=== PATIENT | female | born 1940 | race Caucasian/White ===

== ENCOUNTER 2018-08-21 09:04 | Emergency (ER) | payer MEDICARE | END 2018-08-21 11:04 | disposition home or self-care (01) | LOC: EDH 09:04 | DX: S52.501A Unspecified fracture of the lower end of right radius, initial encounter for closed fracture (principal); S79.911A Unspecified injury of right hip, initial encounter; Z88.2 Allergy status to sulfonamides; Z88.6 Allergy status to analgesic agent; Z98.890 Other specified postprocedural states; W18.39XA Other fall on same level, initial encounter; Y93.01 Activity, walking, marching and hiking; Y92.89 Other specified places as the place of occurrence of the external cause; Y99.8 Other external cause status | CPT/HCPCS: 29125; 73110; 73521 ==

== ENCOUNTER 2018-08-22 09:20 | Emergency (ER) | payer MEDICARE | END 2018-08-22 09:52 | disposition home or self-care (01) | LOC: EDH 09:20 | DX: S52.91XA Unspecified fracture of right forearm, initial encounter for closed fracture (principal); Z88.2 Allergy status to sulfonamides; Z88.6 Allergy status to analgesic agent; Z88.1 Allergy status to other antibiotic agents; Z98.890 Other specified postprocedural states; W18.39XA Other fall on same level, initial encounter; Y93.01 Activity, walking, marching and hiking; Y92.098 Other place in other non-institutional residence as the place of occurrence of the external cause; Y99.8 Other external cause status | CPT/HCPCS: 99281 ==

== ENCOUNTER 2018-08-24 20:46 | Emergency (ER) | payer MEDICARE | END 2018-08-24 22:10 | disposition home or self-care (01) | LOC: EDH 20:46 | DX: S52.501A Unspecified fracture of the lower end of right radius, initial encounter for closed fracture (principal); M79.89 Other specified soft tissue disorders; Z88.2 Allergy status to sulfonamides; Z88.5 Allergy status to narcotic agent; Z88.1 Allergy status to other antibiotic agents; Z88.6 Allergy status to analgesic agent; X58.XXXA Exposure to other specified factors, initial encounter; Y93.89 Activity, other specified; Y92.89 Other specified places as the place of occurrence of the external cause; Y99.8 Other external cause status | CPT/HCPCS: 99281 ==

== ENCOUNTER 2022-02-19 10:34 | Observation (INO) | payer MEDICARE ==
[~2022-02-19] VITALS: Ht 162.6 cm; Wt 59.5 kg
[2022-02-19] MEDS ORDERED: TEMAZEPAM 15 MG CAPSULE PO PRN (11:30)
[2022-02-19] MEDS ORDERED: LACTULOSE 20 GM/30 ML UDCUP PO PRN (11:30)
[2022-02-19] MEDS ORDERED: ONDANSETRON 4MG INJ IVP PRN (11:30)
[2022-02-19] MEDS ORDERED: ACETAMINOPHEN 325 MG TAB PO PRN (11:30)
[2022-02-19] MEDS ORDERED: ACETAMINOPHEN 650 MG SUPPOSITORY RC PRN (11:30)
[2022-02-19] MEDS ORDERED: CLONIDINE HCL 0.1 MG TABLET PO PRN (11:30)
[2022-02-19 12:10] LABS: ABG BASE EXCESS 0.5 mmol/L (-2.0-3.0); ABG HCO3 24.1 mmol/L (21.0-28.0); ABG OXYGEN SATURATION 96.3 % (95.0-99.0); ABG PCO2 36 mmHg (32-45)
[2022-02-19 14:55] VITALS: BP 135/59
[2022-02-19] MEDS ORDERED: LUBI8CAP PO (16:58)
[2022-02-19] MEDS ORDERED: SERT-438 PO (16:58)
[2022-02-19] MEDS ORDERED: FOLI-74 PO (16:58)
[2022-02-19] MEDS ORDERED: ROSU5TAB12 PO (16:58)
[2022-02-19] MEDS ORDERED: OMEP20TA20 PO (16:58)
[2022-02-19] MEDS ORDERED: ALPR2TAB7 PO (16:58)
[2022-02-19] MEDS ORDERED: POTA-79 PO (16:58)
[2022-02-19] MEDS ORDERED: CHOL200013 PO (16:58)
[2022-02-19] MEDS ORDERED: GABA-529 PO (16:58)
[2022-02-19] MEDS ORDERED: FURO80TA3 PO (16:58)
[2022-02-19] MEDS ORDERED: TRAZ150T79 PO (16:58)
[2022-02-19] MEDS ORDERED: BISA5TAB12 PO (16:58)
[2022-02-19] MEDS ORDERED: DOCU100T9 PO (16:58)
[2022-02-19] MEDS ORDERED: ACET-2247 PO (16:58)
[2022-02-19 20:00] VITALS: BP 120/66
[2022-02-19] MEDS: INSULIN HUMULIN R 100 UNIT/ML 3ML SQ SCH (20:13)
[2022-02-19] MEDS ORDERED: THIAMINE HCL 100 MG/ML 2ML VIAL IVP SCH (22:30)
[2022-02-19 22:32] LABS: CREATININE 1.1 mg/dL (0.5-1.5); POTASSIUM 3.1 mmol/L (3.5-5.1)
[2022-02-19] MEDS ORDERED: IOHEXOL-350 75 ML VIAL IV ONE (22:47)
[2022-02-19] MEDS ORDERED: TRAZODONE HCL 100 MG TABLET PO SCH (23:00)
[2022-02-19] MEDS ORDERED: THIAMINE HCL 300 MG in 0.9%NACL 100ML 100 ML IV ONE (23:00)
[2022-02-19] MEDS ORDERED: THIAMINE HCL 100 MG/ML 2ML VIAL ONE (23:09)
[2022-02-19 23:58] VITALS: BP 132/59
[2022-02-20 04:00] VITALS: BP 98/60
[2022-02-20 05:01] LABS: BASOPHILS % (AUTO) 0.5 % (0.0-5.0); HEMATOCRIT 35.3 % (36-48); LYMPHOCYTES % (AUTO) 35.6 % (21.0-51.0); MEAN CORPUSCULAR HEMOGLOBIN 31.3 pg (27.0-33.0); MEAN CORPUSCULAR HGB CONC 33.4 g/dL (32.0-36.0); MEAN CORPUSCULAR VOLUME 93.6 fL (79-99); MONOCYTES % (AUTO) 10.1 % (3.0-13.0); NEUTROPHILS % (AUTO) 51.6 % (40.0-77.0); PLATELET COUNT (AUTO) 248 K/uL (130-400); RED BLOOD CELL COUNT(AUTO) 3.77 MIL/uL (4.00-5.50)
[2022-02-20 05:13] LABS: HEMOGLOBIN A1C 5.8 % (4.0-6.0)
[2022-02-20 05:23] LABS: B-TYPE NATRIURETIC PEPTIDE 77 pg/mL (0-100)
[2022-02-20] MEDS: INSULIN HUMULIN R 100 UNIT/ML 3ML SQ SCH ×3 (06:00→16:30)
[2022-02-20 07:10] VITALS: BP 111/63
[2022-02-20] MEDS ORDERED: ASPIRIN 81MG CHEW TAB PO SCH (09:00)
[2022-02-20] MEDS ORDERED: ***HM***(Cholecalciferol (Vitamin D3) (Vitamin D3) 50 MCG) PO SCH (09:00)
[2022-02-20] MEDS ORDERED: PANTOPRAZOLE 40 MG TAB DR PO SCH (09:00)
[2022-02-20] MEDS ORDERED: GABAPENTIN 100 MG CAPSULE PO SCH (09:00)
[2022-02-20] MEDS ORDERED: LUBIPROSTONE 8 MCG PO SCH (09:00)
[2022-02-20] MEDS ORDERED: NON-FORMULARY MEDICATION 1 EACH (Omeprazole 20 MG) PO SCH (09:00)
[2022-02-20] MEDS ORDERED: ENOXAPARIN SODIUM 40 MG/0.4 ML SYRINGE SQ SCH (09:00)
[2022-02-20] MEDS ORDERED: ACETAMINOPHEN 325 MG TAB PO SCH (09:00)
[2022-02-20] MEDS ORDERED: KCL 20 MEQ ERTAB PO SCH (09:00)
[2022-02-20] MEDS ORDERED: BISACODYL 5 MG TABLET.DR PO SCH (09:00)
[2022-02-20] MEDS ORDERED: MULTIVITAMIN TABLET PO SCH (09:00)
[2022-02-20] MEDS ORDERED: SERTRALINE HCL 50 MG TABLET PO SCH (09:00)
[2022-02-20] MEDS ORDERED: DOCUSATE SODIUM 100 MG CAP PO SCH (09:00)
[2022-02-20] MEDS ORDERED: FUROSEMIDE 80 MG TABLET PO SCH (09:00)
[2022-02-20 11:15] VITALS: BP 109/56
[2022-02-20 15:10] VITALS: BP 121/63
[2022-02-20] MEDS ORDERED: ALPRAZOLAM 1 MG TAB PO SCH (21:00)
[2022-02-20] MEDS ORDERED: ATORVASTATIN 20 MG TABLET PO SCH ×2 (21:00→23:00)
[2022-02-20] MEDS ORDERED: TRAZODONE HCL 100 MG TABLET PO SCH (21:00)
[2022-02-20] MEDS ORDERED: NON-FORMULARY MEDICATION 1 EACH (Alprazolam 2 MG) PO SCH (21:00)
== END 2022-02-20 19:05 | disposition home or self-care (01) ==
LOC: EDH 10:34 → EDHIP 11:26 → 3AH 15:00
PROVIDERS: ADMIT Internal Medicine Critical Care Medicine; ATTEND Internal Medicine Critical Care Medicine
DX: J90 Pleural effusion, not elsewhere classified (principal); K59.09 Other constipation; G89.29 Other chronic pain; M54.9 Dorsalgia, unspecified; R01.1 Cardiac murmur, unspecified; Z98.82 Breast implant status; Z87.891 Personal history of nicotine dependence; Z88.5 Allergy status to narcotic agent; Z79.899 Other long term (current) drug therapy
CPT/HCPCS: 36415 ×2; 36600; 71045; 71270; 78582; 80048; 82803; 82948 ×5; 83036; 83880; 84145; 84443; 85025; 85378; 93306; 93356; 93970; 96372; A9540; A9558; G0378 ×29; G0379; J1650; J3411; Q9967

== ENCOUNTER 2024-12-17 09:49 | Inpatient (IN) | payer MEDICARE ==
[~2024-12-17] VITALS: Ht 167.6 cm; Wt 62.6 kg
[~2024-12-17 09:49] MED LIST: ACET-2247 PO; ALPR2TAB7 PO; BISA-151 PO; CHOL200013 PO; DOCU100T9 PO; FOLI-74 PO; FURO80TA3 PO; GABA-529 PO; LUBI8CAP PO; OMEP20TA20 PO; POTA-364 PO; ROSU5TAB51 PO; SERT-438 PO; TRAZ150T79 PO
--- NOTE | 2024-12-17 10:20 | ERN ---
General Chief Complaint: Mechanical Fall Stated Complaint: FALL Time Seen by MD: 09:55 Source: patient History of Present Illness Initial Comments PATIENT IS A AN 84-YEAR-OLD FEMALE COMING IN TO BE EVALUATED FOR RIGHT HIP PAIN. PER PATIENT SHE WAS CLIMBING UP SOME STEPS AT HOME SLIPPED AND LANDED ON HER RIGHT HIP. TENDERNESS OF THE RIGHT HIP Allergies: Coded Allergies: codeine (Unverified Allergy, Unknown, 02/19/22) Home Meds Reported Medications Potassium Chloride (Potassium Chloride) 20 Meq Tablet.er, 20 MEQ PO BID, TAB 02/19/22 Multivitamin/Iron/Folic Acid (Centrum Complete Multivit Tab) 1 Each Tablet, 1 EACH PO DAILY, TAB 02/19/22 Trazodone HCl (Trazodone HCl) 150 Mg Tablet, 150 MG PO PM, TAB 02/19/22 Alprazolam (Alprazolam) 2 Mg Tablet, 2 MG PO PM, TAB 02/19/22 Docusate Sodium (Stool Softener) 100 Mg Tablet, 200 MG PO DAILY, TAB 02/19/22 Bisacodyl (Bisacodyl) 5 Mg Tablet.dr, 10 MG PO DAILY, TAB 02/19/22 Furosemide (Furosemide) 80 Mg Tablet, 80 MG PO DAILY, TAB 02/19/22 Sertraline HCl (Sertraline HCl) 25 Mg Tablet, 25 MG PO DAILY, TAB 02/19/22 Rosuvastatin Calcium (Rosuvastatin Calcium) 5 Mg Tablet, 5 MG PO DAILY, TAB 02/19/22 Omeprazole (Omeprazole) 20 Mg Tablet.dr, 20 MG PO DAILY, TAB 02/19/22 Cholecalciferol (Vitamin D3) (Vitamin D3) 50 Mcg Capsule, 50 MCG PO BID, CAP 02/19/22 Acetaminophen (Tylenol) 325 Mg Tablet, 325 MG PO BID, TAB 02/19/22 Gabapentin (Gabapentin) 100 Mg Capsule, 100 MG PO BID, CAP 02/19/22 Lubiprostone (Amitiza) 8 Mcg Capsule, 8 MCG PO DAILY, CAP 02/19/22 Past Medical History Past Medical History: Anxiety, Depression Past Surgical History: Other Surgical History Other: BACK SURGERY ROS Dictation CONSTITUTIONAL: NO CHILLS, NO FEVER, NO WEAKNESS, NO DIAPHORESIS, NO MALAISE. HEAD/FACE: NO SIGNS OF TRAUMA. EENT: NO EYE PAIN, NO BLURRED VISION, NO TEARING, NO DOUBLE VISION, NO EAR PAIN, NO EAR DISCHARGE, NO NOSE PAIN, NO NASAL CONGESTION, NO THROAT PAIN, NO THROAT SWELLING, NO MOUTH PAIN. RESPIRATORY: NO COUGH, NO ORTHOPNEA, NO SOB, NO STRIDOR, NO WHEEZING. CARDIOVASCULAR: NO CHEST PAIN, NO EDEMA, NO PALPITATIONS, NO SYNCOPE. GASTROINTESTINAL/ABDOMINAL: NO ABDOMINAL PAIN, NO CONSTIPATION, NO DIARRHEA, NO NAUSEA, NO VOMITING. GENITOURINARY: NO ABNORMAL DISCHARGE, NO DYSURIA, NO FREQUENT URINATION, NO HEMATURIA. NO COMPLAINTS OF PAIN IN THE GENITALS. MUSCULOSKELETAL: NO BACK PAIN, NO GOUT, JOINT PAIN, NO JOINT SWELLING, MUSCLE PAIN, NO MUSCLE STIFFNESS, NO NECK PAIN. INTEGUMENTARY: NO CHANGE IN COLOR, NO CHANGE IN HAIR/NAILS, NO DRYNESS, NO LESION, NO LUMPS, NO RASH. NEUROLOGICAL/PSYCH: NO ANXIETY, NOT DEPRESSED, NO EMOTIONAL PROBLEM, NO HEADACHE, NO NUMBNESS, NO PRE-EXISTING DEFICIT, NO HISTORY OF SEIZURES, NO TREMORS, NO WEAKNESS. HEMATOLOGIC/LYMPHATIC: NOT ANEMIC, NO HISTORY OF BLOOD CLOTS, NO APPARENT BLEEDING, NO BRUISING, GLANDS NOT SWOLLEN. ALL SYSTEMS NEGATIVE, EXCEPT NOTED. Physical Exam Physical Exam Dictation VITAL SIGNS: REVIEWED. GENERAL APPEARANCE: ALERT, ORIENTED X3, NO ACUTE DISTRESS, OBESE. HEAD AND FACE: NON-TRAUMATIC. EYES: PERRL, PINK CONJUNCTIVAS, EYELID NO TRAUMA, ANTERIOR CHAMBER CLEAR. EARS: PINNAS INTACT AND NO SIGNS OF TRAUMA OR ERYTHEMA. EAR CANALS CLEAR AND NO DISCHARGE. TMS NO ERYTHEMA. NOSE: NO DISCHARGE, NO BLEEDING. OROPHARYNX: MOUTH NORMAL, TEETH NO CARIES, TONGUE PINK. PHARYNX CLEAR, NO ERYTHEMA. TONSILS NO EXUDATES, NO ABSCESSES NOTED. MUCOUS MEMBRANE MOIST. NECK: SUPPLE, NON-TENDER, NO THYROMEGALY, NO MASSES, NO JVD, NO BRUITS. BREAST: DEFERRED. CHEST: NO TENDERNESS, NO CREPITUS, NO PARADOXICAL MOVEMENT, NO RETRACTIONS. LUNGS: CLEAR, WELL-VENTILATED, SYMMETRIC, NO RALES, NO WHEEZING, NO RHONCHI, NO STRIDOR, GOOD BREATH SOUNDS BILATERALLY. HEART: REGULAR RATE, REGULAR RHYTHM, NO MURMUR, NO GALLOPS. VASCULAR: NO PERIPHERAL EDEMA. ABDOMEN: SOFT, POSITIVE BOWEL SOUNDS, NONDISTENDED, NO GUARDING, NONTENDER, NO REBOUND, NO MASSES NO HEPATOMEGALY, NO SPLENOMEGALY, NO ROSE'S SIGN, NO HERNIAS. RECTAL: DEFERRED. GENITAL: DEFERRED. NEUROLOGICAL: NORMAL SPEECH, GROSS MOTOR FUNCTION INTACT, GROSS SENSORY FUNCTION INTACT. MUSCULOSKELETAL: NECK NONTENDER, FULL RANGE OF MOTION, BACK NONTENDER, FULL RANGE OF MOTION. EXTREMITIES: NONTENDER, FULL RANGE OF MOTION. RIGHT HIP PAIN AND PALPATION, LOGROLL POSITIVE SKIN: COLOR PINK, DRY, NO TURGOR, NO RASH, NO LACERATIONS, NO ABRASIONS, NO CONTUSIONS. LYMPHATICS: DEFERRED. Results Laboratory and Microbiology Labs Reviewed?: Yes EKG/XRAY/US/CT/MRI X-RAY Comment X-ray hip right-right femoral neck fracture MDM MDM: DIFFERENTIAL DIAGNOSIS: RIGHT FEMORAL NECK FRACTURE, STATUS POST FALL, RATIONALE: TESTS CONSIDERED AND ORDERED SECONDARY TO SHARED DECISION MAKING INCLUDE: LABS, ECG AND RADIOLOGY PREVIOUS OUTSIDE RECORDS REVIEWED: OLD ER VISITS. RISK OF COMPLICATION AND/OR MORBIDITY OR MORTALITY OF PATIENT MANAGEMENT: NONE MEDICATIONS-PER MEDICATION RECONCILIATION NEED FOR HOSPITALIZATION: PATIENT DOES MEET CRITERIA FOR HOSPITALIZATION. NEED FOR EMERGENCY MAJOR/MINOR SURGERY: NO THERE ARE NO SOCIAL CONCERNS WITH THIS PATIENT. PRESCRIPTION DRUG MANAGEMENT PRESCRIPTIONS WILL INCLUDE SYMPTOMATIC CARE PATIENT'S PRIOR EXTERNAL MEDICAL RECORDS FROM OTHER ER VISITS WERE REVIEWED BY Shayan Guzman INDICATED. PRIOR TESTING AND RESULTS FROM PREVIOUS VISITS WERE REVIEWED. PRIOR TESTS WERE TAKEN INTO ACCOUNT WITH MEDICAL DECISION MAKING AND RESOURCE UTILIZATION, INDEPENDENT HISTORIAN/HISTORIANS WERE USED TO OBTAIN COMPLETE MEDICAL HISTORY. I INDEPENDENTLY INTERPRETED THE TEST THAT WERE PERFORMED, RESULTS WERE REVIEWED BY ME AND CONSIDERED FINDINGS ON RADIOLOGY IF ORDERED. MEDICAL MANAGEMENT AND EXAMINATION INTERPRETATION DISCUSSIONS WERE HAD BY ME WITH OTHER QUALIFIED HEALTHCARE PROFESSIONALS INDICATED FOR THE PATIENT'S CARE. CASE DISCUSSED WITH ORTHOPEDIC SURGEON ILA Rodriguez TO TAKE PATIENT WAS SURGERY TOMORROW. PATIENT WILL BE ADMITTED UNDER THE CARE OF HOSPITALIST GROUP FOR ONGOING MANAGEMENT ED Course Orders Procedure Category Date Status Time Hip Unilat 2-3vw Right RAD 12/17/24 Taken 10:18 Chest 1vw RAD 12/17/24 Taken 10:36 Vital Signs Date Time Temp Pulse Resp B/P (MAP) Pulse Ox O2 Delivery O2 Flow Rate FiO2 12/17/24 10:00 97.5 57 16 98 Room Air* 0 21 12/17/24 09:50 97.5 57 16 128/58 DX & DISP Disposition: Inpatient Decision to Admit Time: 11:00 Departure Impression: Primary Impression: Fracture of femoral neck, right, closed Condition: Stable Referrals: SELF,REFERRAL (PCP) SUKHWINDER QUINTANILLA MD Dec 17, 2024 10:20
--- NOTE | 2024-12-17 11:18 | HP ---
[facility] HISTORY AND PHYSICAL Date of Service: Dec 17, 2024 Time of Service: 11:01 HISTORY OF PRESENT ILLNESS: [ ] This is a 84-year-old female that presents in ER with right hip pain secondary to a fall. Apparently patient reports walking up stairs and fell on her right side. Immediately she started with right hip pain and came to ED for further evaluation and treatment. The patient denies prior to fall being dizzy, blurry vision or shortness a breath. She does report when she fell she bumped her head therefore we will get imaging of head CT. ER workup was consistent with femoral neck fracture orthopedic was consulted per ER physician and will accept patient possible ORIF today versus tomorrow. Patient is seen in ED 16 patient appears to have pain he is currently on pain management we will modify as needed. REVIEW OF SYSTEMS A 14 point ROS was obtained all relevant positive were documented otherwise ROS negative. PAST MEDICAL HISTORY: [ ] Depression PAST SURGICAL HISTORY: [ ] Low back surgery patient has multiple metals in place. PAST SOCIAL HISTORY: [ ] Denies smoking tobacco products and reports having a cocktail on a daily basis. FAMILY HISTORY: [ ] Noncontributory Coded Allergies: codeine (Unverified Allergy, Unknown, 02/19/22) PHYSICAL EXAM GENERAL APPEARANCE: The patient is awake, alert, and oriented, in no acute cardiopulmonary distress. NEUROLOGICAL: Cranial nerves II-XII grossly intact. Motor is 5/5 in bilateral upper and lower extremities proximal to distal. No sensory deficits. HEENT: Face is symmetric. Pupils are equal and reactive. Extraocular movements are intact. NECK: Supple. No JVD. No thyromegaly. No submental, submandibular, pre- /postauricular, occipital or supraclavicular lymphadenopathy. CHEST: Normal chest expansion. No Telemetry. LUNGS: Absence of any rales, rhonchi or any wheezing. CARDIOVASCULAR: Regular. S1 and S2 normal. No appreciable rubs, murmurs or gallops. ABDOMEN: Soft, nontender, and nondistended. There is no rebound, voluntary guarding, or rigidity. : Deferred. No Lees. EXTREMITIES: Non-edematous and not cyanotic. No clubbing. Good capillary refill. SKIN: No skin breakdown. Vital Sign (Last 24 Hours) 12/17/24 12/17/24 09:50 10:00 Temp 97.5 Pulse 57 Resp 16 B/P (MAP) 128/58 Pulse Ox 98 O2 Delivery Room Air* O2 Flow Rate 0 FiO2 21 LABS: DIAGNOSTICS / RADIOLOGY: [ ] REASON: FALL ORDERING PHYSICIAN: SUKHWINDER QUINTANILLA MD PROCEDURE: HIP U 2V R - HIP UNILAT 2-3VW RIGHT HIP UNILAT 2-3VW RIGHT INDICATION: FALL TECHNIQUE: HIP UNILAT 2-3VW RIGHT. FINDINGS AND IMPRESSION: Displaced fracture of the neck of the right femur. There is diffuse soft tissue swelling No radiopaque foreign body is identified. There is diffuse osteopenia limiting evaluation of the study. ASSESSMENT: MECHANICAL FALL INTRACTABLE RIGHT HIP PAIN POA RIGHT FEMORAL NECK DISPLACED FRACTURE POA CHRONIC LOW BACK PAIN poa PLAN: [ ] ADMIT: SURGICAL FLOOR CONDITION: GUARDED STATUS: Full code IVF: NS at 75 mL/hour [facility] orthopedic Procedure possible ORIF waiting for surgeon recommendations Imaging: CT HEAD LABS CBC, CMP, MAG+ and UA Insert indwelling catheter. REPLACE ELECTROLYTES NEEDED PER PROTOCOL TO KEEP POTASSIUM ABOVE 4.0 MAGNESIUM 2.0. HOME MEDICATIONS PENDING TO BE REVIEWED BY RN NURSE. PRN: MEDICATIONS TYLENOL 650 MG PO EVERY 4 HRS FOR FEVER ZOFRAN 4 MG IV EVERY 6 HRS FOR N/V HYDRALAZINE 5 MG IV EVERY 4 HRS SYSTOLIC PRESSURE > 160 BOWEL REGIMENT: LACTULOSE 20 GM PO BID PRN CONSTIPATION PAIN MANAGEMENT: Toradol 30 mg IV as needed SUPPORTIVE MEASURES: DVT PPX, GI PPX Case management: discharged planning. ALL QUESTIONS ANSWERED TIME SPENT: > 35 MIN SUPERVISING MD: DR. De Leon THIS DOCUMENT WAS GENERATED IN PART USING VOICE RECOGNITION SOFTWARE, OCCASIONAL WRONG WORD OR SOUND ALIKE SUBSTITUTIONS MAY HAVE OCCURRED DUE TO THE INHERENT LIMITATIONS OF VOICE RECOGNITION SOFTWARE. READ THE CHART CAREFULLY AND RECOGNIZE USING CONTEXT, WHERE THE SUBSTITUTIONS HAVE OCCURRED. ALTHOUGH EVERY EFFORT WAS MADE TO EDIT THE CONTENT, CITY EDITOR AND TYPING ERRORS MAY OCCUR ADVANCED CARE PLANNING 1. Which of the following were discussed? Hospice Care - Yes / No Therapeutic options - Yes / No Advance Directives - Yes / No Other discussions - 2. Discussed with who? 3. Voluntary nature of this service was explained to the patient? Yes / No 4. Amount of time spent - 5. Reviewed by Physician? (if this service was performed by NPP) Yes / No ATTESTATION BY PHYSICIAN I have seen and examined the patient. I reviewed the documentation, medical decision making, and treatment plan as noted by the mid-level provider above. I agree with the findings and plan of care. LA[place] CHAMBERLAIN MD, ELIZABETH NP Dec 17, 2024 11:18
[2024-12-17] MEDS: 0.9%NACL 1000ML 1,000 ML IV SCH (11:28)
[2024-12-17] MEDS ORDERED: ondanSETRON 4MG INJ IVP PRN (11:30)
[2024-12-17] MEDS ORDERED: hydrALAZine 20MG/ML VIAL IV PRN (11:30)
[2024-12-17 12:00] VITALS: O2SAT 96
[2024-12-17] MEDS: ketOROlac 15MG/ML VIAL (15MG/ML) IV PRN (12:00)
[2024-12-17] MEDS ORDERED: ketOROlac 15MG/ML VIAL (15MG/ML) IV PRN (12:00)
--- NOTE | 2024-12-17 12:05 | HMCIMG ---
HIP UNILAT 2-3VW RIGHT INDICATION: FALL TECHNIQUE: HIP UNILAT 2-3VW RIGHT. FINDINGS AND IMPRESSION: Displaced fracture of the neck of the right femur. There is diffuse soft tissue swelling No radiopaque foreign body is identified. There is diffuse osteopenia limiting evaluation of the study.
[2024-12-17 12:15] VITALS: BP 110/58; PULSE 60; RESP 16; TEMP 97.6
--- NOTE | 2024-12-17 12:54 | HMCIMG ---
INDICATION: HIP FRACTURE TECHNIQUE: CHEST 1VW COMPARISON: 02/19/2022 FINDINGS AND IMPRESSION: Prominent bilateral interstitial markings which may represent bronchitis or vascular congestion in the proper clinical setting. Cardiac silhouette is within normal limits. Mild degenerative changes of the spine. Bilateral breast implants are noted.
--- NOTE | 2024-12-17 12:58 | HMCIMG ---
CT HEAD/BRAIN W/O CONTRAST INDICATION: fall TECHNIQUE: CT HEAD/BRAIN W/O CONTRAST. CT was performed with one or more of the following dose reduction techniques: Automated exposure control, adjustment of the mA and/or kV according to the patient's size, or use of the iterative reconstruction technique. Comparison: None FINDINGS: Cerebral atrophy seen. Nonspecific periventricular and subcortical white matters changes are noted likely representing small vessel ischemic changes. No midline shift or herniation. No extra axial collection. No acute intracranial bleed. The visualized paranasal sinuses and mastoid air cells are normally aerated. IMPRESSION: Diffuse atrophy. No acute intracranial bleed is seen. Nonspecific white matter changes
[2024-12-17 13:20] LABS: BASOPHILS # (AUTO) 0.04 K/uL (0.00-0.20); BASOPHILS % (AUTO) 0.3 % (0.0-5.0); EOSINOPHILS # (AUTO) 0.05 K/uL (0.00-0.70); EOSINOPHILS % (AUTO) 0.4 % (0.0-8.0); HEMATOCRIT 37.1 % (36-48); IMMATURE GRANULOCYTE ABSOLUTE 0.04 K/uL (0-1); LYMPHOCYTES # (AUTO) 1.2 K/uL (1.0-4.8); LYMPHOCYTES % (AUTO) 9.6 % (21.0-51.0); MEAN CORPUSCULAR HEMOGLOBIN 30.4 pg (27.0-33.0); MEAN CORPUSCULAR HGB CONC 33.4 g/dL (32.0-36.0); MEAN CORPUSCULAR VOLUME 90.9 fL (79-99); MONOCYTES # (AUTO) 0.6 K/uL (0.1-1.0); NEUTROPHILS # (AUTO) 10.2 K/uL (1.8-7.7); NEUTROPHILS % (AUTO) 84.4 % (40.0-77.0); PLATELET COUNT (AUTO) 287 K/uL (130-400); RED BLOOD CELL COUNT(AUTO) 4.08 MIL/uL (4.00-5.50); RED CELL DISTRIBUTION WIDTH 12.9 % (11.0-15.5); WHITE BLOOD COUNT (AUTO) 12.1 K/uL (4.8-10.8)
[2024-12-17 13:25] LABS: POTASSIUM 3.3 mmol/L (3.5-5.1)
[2024-12-17 13:30] LABS: ALBUMIN 3.6 g/dL (3.5-5.0); BILIRUBIN,TOTAL 0.4 mg/dL (0.2-1.0); MAGNESIUM 1.7 mg/dL (1.80-2.40); TOTAL PROTEIN, SERUM 7.3 g/dL (6.0-8.3)
[2024-12-17] MEDS: HEParin 5,000 UNIT VIAL SQ SCH (14:18)
[2024-12-17 16:00] VITALS: BP 114/57; PULSE 72; RESP 17; TEMP 97.6
[2024-12-17] MEDS ORDERED: SPIR25TA6 PO (16:52)
[2024-12-17] MEDS ORDERED: CEPH250T PO (16:52)
[2024-12-17 20:00] VITALS: BP 110/60; PULSE 65; RESP 17; TEMP 97.6; O2SAT 96
[2024-12-17] MEDS: GABApentin 100 MG CAPSULE PO SCH (20:18)
[2024-12-17] MEDS: ALPRAZolam 1 MG TAB PO SCH (20:18)
[2024-12-17] MEDS: trAZOdone HCL 50 MG TAB PO SCH (20:19)
[2024-12-17] MEDS: FAMOTIDINE 20MG VIAL IV SCH (20:19)
--- NOTE | 2024-12-17 22:42 | NUR ---
HEPARIN HELD PATIENT'S HEPARIN SQ HELD FOR SX IN THE MORNING.
[2024-12-18] VITALS (23 sets, daily range): BP systolic 82–132; BP diastolic 42–71; PULSE 53–100; RESP 15–18; TEMP 97.4–98; O2SAT 94–98
[2024-12-18] MEDS ORDERED: LIDOCAINE PF 100MG/5ML (2%) SYRINGE 5ML ONE (07:48)
[2024-12-18] MEDS ORDERED: rocuRONium bROMide 10MG/1ML 5ML VL ONE (07:48)
[2024-12-18] MEDS ORDERED: proPOFol 10 MG/ML 20ML VIAL IV ONE (07:48)
[2024-12-18] MEDS: atorVAStatin 20 MG TABLET PO SCH (08:10)
[2024-12-18] MEDS: doCUSate SODIUM 100 MG CAP PO SCH (08:10)
[2024-12-18] MEDS: SERTraline HCL 50 MG TABLET PO SCH (08:10)
[2024-12-18] MEDS: LUBIPROSTONE 8 MCG PO SCH (08:10)
[2024-12-18] MEDS: BisaCODYL 5 MG TABLET.DR PO SCH (08:10)
--- NOTE | 2024-12-18 08:11 | NUR ---
AM MEDICATION HELD PATIENT OFF UNIT AT 0726 FOR PROCEDURE, MORNING MEDICATIONS NOT GIVEN.
[2024-12-18] MEDS ORDERED: ROPivacaine 0.5% 5MG/ML 30ML ONE (08:27)
[2024-12-18] MEDS ORDERED: ceFAZolin SODIUM 1 GM VIAL ONE (08:31)
[2024-12-18] MEDS ORDERED: NEOSTIGMINE METHYLSULFATE 1MG/ML IV ONE (09:12)
[2024-12-18] MEDS ORDERED: GLYCOPYRROLATE 0.2 MG/ML 5 ML VIAL ONE (09:12)
[2024-12-18] MEDS ORDERED: ondanSETRON 4MG INJ ONE (09:20)
[2024-12-18] MEDS ORDERED: dexaMETHasone SOD PHOSPHATE 4 MG/ML 1ML VIAL ONE (09:20)
--- NOTE | 2024-12-18 10:02 | HMCIMG ---
PELVIS RADIOGRAPH (1 VIEW) INDICATION: Postop eval COMPARISON: None FINDINGS/IMPRESSION: No evidence for acute fracture or dislocation. Sacroiliac joints appear normal. Right hip hemiarthroplasty hardware appears normal. Left hip joint appears normal.
--- NOTE | 2024-12-18 10:05 | HMCIMG ---
INTRAOPERATIVE FLUOROSCOPIC GUIDANCE UP TO 1 HOUR. IMPRESSION: Intraoperative fluoroscopic guidance was provided for ORIF right hip, which was performed by Dr. Medrano. Total fluoroscopy time was 12.1 seconds, and administered dose, 0.83 mGy. A total of 8 spot images obtained. Please refer to the orthopedic procedure note for further details.
--- NOTE | 2024-12-18 10:41 | PN ---
[facility] PROGRESS NOTE Date of Service: Dec 18, 2024 Time of Service: 10:39 SUBJECTIVE: [ ] This is a 84-year-old that was admitted yesterday 12/17/24 with chief complaints of right hip pain secondary to mechanical fall patient sustained femoral neck fracture patient is scheduled for surgery today ORIF. Patient is requesting [facility] for rehab. Patient is recuperating well postop day 0. REVIEW OF SYSTEMS A 14 point ROS was obtained all relevant positive were documented otherwise ROS negative. PHYSICAL EXAM GENERAL APPEARANCE: The patient is awake, alert, and oriented, in no acute cardiopulmonary distress. NEUROLOGICAL: Cranial nerves II-XII grossly intact. Motor is 5/5 in bilateral upper and lower extremities proximal to distal. No sensory deficits. HEENT: Face is symmetric. Pupils are equal and reactive. Extraocular movements are intact. NECK: Supple. No JVD. No thyromegaly. No submental, submandibular, pre- /postauricular, occipital or supraclavicular lymphadenopathy. CHEST: Normal chest expansion. No Telemetry. LUNGS: Absence of any rales, rhonchi or any wheezing. CARDIOVASCULAR: Regular. S1 and S2 normal. No appreciable rubs, murmurs or gallops. ABDOMEN: Soft, nontender, and nondistended. There is no rebound, voluntary guarding, or rigidity. : Deferred. No Lees. EXTREMITIES: Non-edematous and not cyanotic. No clubbing. Good capillary refill. SKIN: No skin breakdown. Vital Signs (last 8hr) Date Time Temp Pulse Resp B/P (MAP) Pulse Ox O2 Delivery O2 Flow Rate FiO2 12/18/24 10:26 97.9 58 16 109/47 99 Nasal Cannula 3.0 12/18/24 10:21 61 16 105/51 99 Nasal Cannula 3.0 12/18/24 10:16 62 15 107/48 98 Nasal Cannula 3.0 12/18/24 10:11 64 16 103/50 99 Nasal Cannula 3.0 12/18/24 10:06 67 16 105/52 99 Nasal Cannula 3.0 12/18/24 10:01 77 15 107/49 98 Nasal Cannula 3.0 12/18/24 09:56 81 16 102/48 98 Nasal Cannula 3.0 12/18/24 09:51 87 15 98/46 98 Nasal Cannula 3.0 12/18/24 09:46 91 16 110/46 100 Nonrebreathing Mask 10.0 12/18/24 09:41 97.3 100 15 116/53 100 Nonrebreathing Mask 10.0 12/18/24 04:00 97.5 67 17 100/49 94 Room Air LABS: Laboratory: Test 12/17/24 12:55 Range/Units White Blood Count 12.1 H 4.8-10.8 K/uL Red Blood Count 4.08 4.00-5.50 MIL/uL Hemoglobin 12.4 12.0-16.0 g/dL Hematocrit 37.1 36-48 % Mean Corpuscular Volume 90.9 79-99 fL Mean Corpuscular Hemoglobin 30.4 27.0-33.0 pg Mean Corpuscular Hemoglobin Concent 33.4 32.0-36.0 g/dL Red Cell Distribution Width 12.9 11.0-15.5 % Platelet Count 287 130-400 K/uL Mean Platelet Volume 10.5 7.5-10.5 fL Immature Granulocyte % (Auto) 0.3 0-1 % Neutrophils (%) (Auto) 84.4 H 40.0-77.0 % Lymphocytes (%) (Auto) 9.6 L 21.0-51.0 % Monocytes (%) (Auto) 5.0 3.0-13.0 % Eosinophils (%) (Auto) 0.4 0.0-8.0 % Basophils (%) (Auto) 0.3 0.0-5.0 % Neutrophils # (Auto) 10.2 H 1.8-7.7 K/uL Lymphocytes # (Auto) 1.2 1.0-4.8 K/uL Monocytes # (Auto) 0.6 0.1-1.0 K/uL Eosinophils # (Auto) 0.05 0.00-0.70 K/uL Basophils # (Auto) 0.04 0.00-0.20 K/uL Absolute Immature Granulocyte (auto 0.04 0-1 K/uL Nucleated Red Blood Cells 0.0 0.0-0.19 % White Cell Morphology Comment See comments Sodium Level 143 136-145 mmol/L Potassium Level 3.3 L 3.5-5.1 mmol/L Chloride Level 105 101-111 mmol/L Carbon Dioxide Level 26 21-32 mmol/L Blood Urea Nitrogen 14 7-18 mg/dL Creatinine 1.0 0.5-1.0 mg/dL Glomerular Filtration Rate Calc 55 >90 mL/min Random Glucose 90 70-105 mg/dL Total Calcium 8.9 8.5-10.1 mg/dL Magnesium Level 1.70 L 1.80-2.40 mg/dL Total Bilirubin 0.4 0.2-1.0 mg/dL Aspartate Amino Transf (AST/SGOT) 19 10-37 U/L Alanine Aminotransferase (ALT/SGPT) 13 12-78 U/L Alkaline Phosphatase 78 50-136 U/L Total Protein 7.3 6.0-8.3 g/dL Albumin 3.6 3.5-5.0 g/dL Current Medications Medications (Trade) Dose Ordered Sig/Lidia Route PRN Reason Start Time Stop Time Status Last Admin Dose Admin Acetaminophen (TYLenol 325MG TAB) 650 mg Q4H PRN PO TEMPERATURE GREATER THAN 101.5 12/17/24 11:30 01/16/25 11:29 Alprazolam (XANax 1MG) 2 mg PM PO 12/17/24 21:00 01/16/25 20:59 12/17/24 20:18 2 MG Atorvastatin Calcium (LIPItor 20MG) 20 mg DAILY PO 12/18/24 09:00 01/17/25 08:59 Bisacodyl (DulcoLAX 5MG TAB) 10 mg DAILY PO 12/18/24 09:00 01/17/25 08:59 Docusate Sodium (COLace 100MG CAP) 200 mg DAILY PO 12/18/24 09:00 01/17/25 08:59 Famotidine (Pepcid 20mg Vial) 20 mg DAILY IV 12/17/24 21:00 01/16/25 20:59 12/17/24 20:19 20 MG Gabapentin (NEURontin 100 mg CAP) 100 mg BID PO 12/17/24 21:00 01/16/25 20:59 12/17/24 20:18 100 MG Heparin Sodium (Porcine) (HEParin 5,000 UNIT VIAL) 5,000 unit Q12H SQ 12/17/24 11:30 01/16/25 11:29 12/17/24 14:18 5,000 UNIT Home Med (Home Medication) (Lubiprostone (Amitiza... DAILY PO 12/18/24 09:00 01/17/25 08:59 Hydralazine HCl (APRESOLine 20MG INJ) 5 mg Q4H PRN IV ADMINISTER FOR SBP > 160 12/17/24 11:30 01/16/25 11:29 Ketorolac Tromethamine (toRADol) 15 mg Q4HPRN PRN IV SEVERE PAIN (7-10) 12/17/24 14:00 12/22/24 11:59 12/17/24 20:19 15 MG Ketorolac Tromethamine (toRADol) 15 mg Q6H PRN IV SEVERE PAIN (7-10) 12/17/24 12:00 12/17/24 13:55 DC Lactulose (Constulose 20gm/ 30ml Udcup) 20 gm BID PRN PO CONSTIPATION 12/17/24 13:00 01/16/25 12:59 Ondansetron HCl (zoFRAN 4MG INJ) 4 mg Q6H PRN IVP NAUSEA/VOMITING 12/17/24 11:30 01/16/25 11:29 Sertraline HCl (ZOloft 50 mg tab) 25 mg DAILY PO 12/18/24 09:00 01/17/25 08:59 Sodium Chloride 1,000 ml @ 75 mls/hr [id number] IV 12/17/24 11:30 01/16/25 11:29 12/17/24 11:28 75 MLS/HR Trazodone HCl (DesyREL/OlepTRO) 150 mg PM PO 12/17/24 21:00 01/16/25 20:59 12/17/24 20:19 150 MG DIAGNOSTICS / RADIOLOGY: [ ] ASSESSMENT: MECHANICAL FALL INTRACTABLE RIGHT HIP PAIN POA RIGHT FEMORAL NECK DISPLACED FRACTURE POA CHRONIC LOW BACK PAIN poa PLAN: [ ] ADMIT: SURGICAL FLOOR CONDITION: GUARDED STATUS: Full code IVF: NS at 75 mL/hour [facility] orthopedic Procedure ORIF today Imaging: CT HEAD noted LABS CBC, CMP, MAG+ and UA REPLACE ELECTROLYTES NEEDED PER PROTOCOL TO KEEP POTASSIUM ABOVE 4.0 MAGNESIUM 2.0. PRN: MEDICATIONS TYLENOL 650 MG PO EVERY 4 HRS FOR FEVER ZOFRAN 4 MG IV EVERY 6 HRS FOR N/V HYDRALAZINE 5 MG IV EVERY 4 HRS SYSTOLIC PRESSURE > 160 BOWEL REGIMENT: LACTULOSE 20 GM PO BID PRN CONSTIPATION PAIN MANAGEMENT: Toradol 30 mg IV as needed SUPPORTIVE MEASURES: DVT PPX, GI PPX Case management: discharged planning. ALL QUESTIONS ANSWERED SUPERVISING MD: DR. Anthony C/D THIS DOCUMENT WAS GENERATED IN PART USING VOICE RECOGNITION SOFTWARE, OCCASIONAL WRONG WORD OR SOUND ALIKE SUBSTITUTIONS MAY HAVE OCCURRED DUE TO THE INHERENT LIMITATIONS OF VOICE RECOGNITION SOFTWARE. READ THE CHART CAREFULLY AND RECOGNIZE USING CONTEXT, WHERE THE SUBSTITUTIONS HAVE OCCURRED. ALTHOUGH EVERY EFFORT WAS MADE TO EDIT THE CONTENT, CONSTRUCTION MATERIALS TESTER AND TYPING ERRORS MAY OCCUR ATTESTATION BY PHYSICIAN I have seen and examined the patient. I reviewed the documentation, medical decision making, and treatment plan as noted by the mid-level provider above. I agree with the findings and plan of care. Ernestina Anthony MD, ELIZABETH NP Dec 18, 2024 10:41
--- NOTE | 2024-12-18 11:19 | NUR ---
PATIENT OFF UNIT UNABLE TO ASSESS PAIN, PATIENT OFF UNIT AT 0726 FOR PROCEDURE Addendum: 12/18/24 at 1129 by DOMINIC GASPAR RN RN Amended: Links added.
--- NOTE | 2024-12-18 11:25 | NUR ---
PATIENT OFF UNIT AT 0726 FOR PROCEDURE Addendum: 12/18/24 at 1129 by DOMINIC GASPAR RN RN Amended: Links added.
[2024-12-18] MEDS ORDERED: ceFAZolin SODIUM 2 GM VIAL IVPB SCH (16:30)
[2024-12-18] MEDS: ceFAZolin SODIUM 1 GM VIAL IVPB SCH (17:12)
--- NOTE | 2024-12-18 18:09 | NUR ---
INITIAL/DCP [facility] Met w pt this afternoon to discuss dcp. Demographics confirmed. EC Friend Monty Galvan [phone]. Pt lives alone in a mobile home w 4 steps to enter. Prior to admission pt was independent w ambulation and ADLs. She does not own any DME. Her preferred pharmacy is [facility]. Discussed w pt Md recommendation for SNF for Rehab @ [place]. Pt in agreement. WILLARD/PC obtained for [facility]. Referral/PASRR sent to [facility]. Manju notified of new referral. Addendum: 12/19/24 at 1812 by NAT BLANCO CM Amended: Links added.
--- NOTE | 2024-12-18 19:20 | CONS ---
TIME: Approximately 3:00 p.m. REASON FOR CONSULT: Right femoral neck fracture. HISTORY: An 84-year-old female with hip pain after a fall. She was walking up the stairs, fell down on the right side, had immediate pain, was brought into the emergency room, found to have a displaced femoral neck fracture, and comes in for admission. PAST MEDICAL HISTORY: Depression. PAST SURGICAL HISTORY: Low back surgery. SOCIAL HISTORY: She denies tobacco and drugs. She does drink alcohol on almost a daily basis. ALLERGIES: SHE HAS AN ALLERGY TO CODEINE. MEDICATIONS: Are in the chart and they were reviewed. PHYSICAL EXAMINATION: GENERAL: She is awake, she is alert, she is oriented, is in no acute distress. EXTREMITIES: Her right upper extremity has a pillow under it and is flexed at the hip and at the knee. Her compartments are soft. She can flex and extend her toes and ankles without difficulty. Her skin is intact. Sensation intact. She is neurovascularly intact otherwise. X-RAYS: Multiple views of the right hip show a displaced femoral neck fracture with no significant arthritic change. IMPRESSION: Femoral neck fracture. PLAN: We will plan to proceed with a hemiarthroplasty on that right side. Risks and benefits were explained. We will take her to Surgery as soon as she has been cleared. TID: [id number] RECEIPT: [id number]
--- NOTE | 2024-12-18 21:23 | OP ---
DATE OF PROCEDURE: 12/18/2024 PREOPERATIVE DIAGNOSIS: Right displaced femoral neck fracture. POSTOPERATIVE DIAGNOSIS: Right displaced femoral neck fracture. PROCEDURE PERFORMED: Right hemiarthroplasty, 61930. SURGEON: Junaid Lanza MD PRICING ANALYST: Staff. ANESTHESIA: General endotracheal anesthesia. BLOOD LOSS: 100 mL. COMPLICATIONS: None. DISPOSITION: PACU in stable condition. IMPLANTS: NextStep orthopedic size 5 high offset stem, -3.5 ceramic 28 mm head and a 48 mm bipolar. PROCEDURE IN DETAIL: An 84-year-old female who had sustained a fall and sustained a displaced right femoral neck fracture. She was seen, cleared and opted for surgery. After informed consent was obtained, she was brought to the operating room and anesthesia was induced. She was placed on the [place] table, well-padded [place] boots peroneal posts were placed. She was checked with AP views of the pelvis. They were and leg was prepped and draped in the usual surgical sterile fashion. Incision was made for a direct anterior approach. Dissection was taken down, the fascia was incised. The blunt dissection was used to take the tensor fascia karla muscle off the fascia and the lateral circumflex vessels were identified, cauterized and transected. Retractors were placed. Capsulectomy was made. The fracture was identified. A saw was used to osteotomize the femur at the appropriate level. The head was removed and it measured a 48. I trialed a 48. It was stable. The labrum was intact. The articular surface was in good condition and I turned my attention to the femur. Leg was externally rotated to 110 degrees, dropped into extension, adduction. Retractors were placed. Soft tissue releases were performed until the femur was delivered into the wound and at that point, the lateralized cookie cutter was used followed by canal finder, then stepwise broaching. I broached up to a size 5, trialed a high offset size 5 with a 48 bipolar and a -3.5 mm, 8 head. Reduction was made. The hip was stable. Leg lengths were checked, but leg turned out to be slightly longer about 1 mm to 2 mm and I felt that this was appropriate. With that in mind, I thoroughly irrigated the wound, checked the broach for stability, it was stable, so I dislocated the hip, removed the implant, irrigated with Aricept and washed that out followed by implanted the real implant with a real bipolar and a 28 mm head. The hip was reduced, irrigation ensued, x-rays verified placement, no fractures were seen and at that point, closure ensued with 0 PDS in running locking fashion, #1 Vicryl, 2-0 Vicryl and chaitanya in the skin. Sterile dressings were placed. The patient tolerated the procedure well and was transferred to recovery room in stable condition. PLAN: Plan will be range of motion, pain control, DVT prophylaxis. She can be weightbearing as tolerated, ambulation. She will be discharged from my standpoint at any time. TID: [id number] RECEIPT: [id number]
[2024-12-18] MEDS ORDERED: BENZOCAINE/MENTH/CETYLPYRD CL 1 EACH LOZENGE MM PRN (21:30)
[2024-12-19] VITALS (7 sets, daily range): BP systolic 92–114; BP diastolic 42–52; PULSE 78–90; RESP 18–20; TEMP 97.6–99; O2SAT 92
[2024-12-19] MEDS: hydroMORPHone 0.5 MG SYG (0.5MG/0.5ML) IVP ONE ×2 (03:40→09:46)
[2024-12-19 05:12] LABS: ALBUMIN 2.6 g/dL (3.5-5.0); BILIRUBIN,TOTAL 0.3 mg/dL (0.2-1.0); CREATININE 0.8 mg/dL (0.5-1.0); MAGNESIUM 1.7 mg/dL (1.80-2.40); POTASSIUM 3.4 mmol/L (3.5-5.1); TOTAL PROTEIN, SERUM 5.9 g/dL (6.0-8.3)
[2024-12-19 05:23] LABS: BASOPHILS # (AUTO) 0.03 K/uL (0.00-0.20); BASOPHILS % (AUTO) 0.3 % (0.0-5.0); EOSINOPHILS # (AUTO) 0.02 K/uL (0.00-0.70); EOSINOPHILS % (AUTO) 0.2 % (0.0-8.0); HEMATOCRIT 29.7 % (36-48); IMMATURE GRANULOCYTE ABSOLUTE 0.04 K/uL (0-1); LYMPHOCYTES # (AUTO) 1.8 K/uL (1.0-4.8); LYMPHOCYTES % (AUTO) 18.3 % (21.0-51.0); MEAN CORPUSCULAR HEMOGLOBIN 31.1 pg (27.0-33.0); MEAN CORPUSCULAR VOLUME 94.3 fL (79-99); MONOCYTES % (AUTO) 10.6 % (3.0-13.0); NEUTROPHILS # (AUTO) 6.9 K/uL (1.8-7.7); NEUTROPHILS % (AUTO) 70.2 % (40.0-77.0); PLATELET COUNT (AUTO) 207 K/uL (130-400); RED BLOOD CELL COUNT(AUTO) 3.15 MIL/uL (4.00-5.50); RED CELL DISTRIBUTION WIDTH 13.2 % (11.0-15.5); WHITE BLOOD COUNT (AUTO) 9.8 K/uL (4.8-10.8)
--- NOTE | 2024-12-19 12:14 | PN ---
[facility] PROGRESS NOTE Date of Service: Dec 19, 2024 Time of Service: 12:11 SUBJECTIVE: [ ] This is a 84-year-old that was admitted yesterday 12/17/24 with chief complaints of right hip pain secondary to mechanical fall patient sustained femoral neck fracture patient is scheduled for surgery today ORIF. Patient is requesting [facility] for rehab. Patient is recuperating well postop day 0. 12/19/2024 patient is fully awake alert. Patient is going to start with physical therapy today patient reports having a rough night overnight. She continues with pain management patient inpatient rehab [facility] in process. REVIEW OF SYSTEMS A 14 point ROS was obtained all relevant positive were documented otherwise ROS negative. PHYSICAL EXAM GENERAL APPEARANCE: The patient is awake, alert, and oriented, in no acute cardiopulmonary distress. NEUROLOGICAL: Cranial nerves II-XII grossly intact. Motor is 5/5 in bilateral upper and lower extremities proximal to distal. No sensory deficits. HEENT: Face is symmetric. Pupils are equal and reactive. Extraocular movements are intact. NECK: Supple. No JVD. No thyromegaly. No submental, submandibular, pre- /postauricular, occipital or supraclavicular lymphadenopathy. CHEST: Normal chest expansion. No Telemetry. LUNGS: Absence of any rales, rhonchi or any wheezing. CARDIOVASCULAR: Regular. S1 and S2 normal. No appreciable rubs, murmurs or gallops. ABDOMEN: Soft, nontender, and nondistended. There is no rebound, voluntary guarding, or rigidity. : Deferred. No Lees. EXTREMITIES: Non-edematous and not cyanotic. No clubbing. Good capillary refill. SKIN: No skin breakdown. Vital Signs (last 8hr) Date Time Temp Pulse Resp B/P (MAP) Pulse Ox O2 Delivery O2 Flow Rate FiO2 12/19/24 08:00 99.0 90 18 96/43 90 Room Air 12/19/24 08:00 92 Room Air* 0 21 LABS: Laboratory: Test 12/19/24 05:18 12/19/24 04:41 12/17/24 12:55 Range/Units White Blood Count 9.8 4.8-10.8 K/uL Red Blood Count 3.15 L 4.00-5.50 MIL/uL Hemoglobin 9.8 #L 12.0-16.0 g/dL Hematocrit 29.7 L 36-48 % Mean Corpuscular Volume 94.3 79-99 fL Mean Corpuscular Hemoglobin 31.1 27.0-33.0 pg Mean Corpuscular Hemoglobin Concent 33.0 32.0-36.0 g/dL Red Cell Distribution Width 13.2 11.0-15.5 % Platelet Count 207 # 130-400 K/uL Mean Platelet Volume 10.6 H 7.5-10.5 fL Immature Granulocyte % (Auto) 0.4 0-1 % Neutrophils (%) (Auto) 70.2 40.0-77.0 % Lymphocytes (%) (Auto) 18.3 L 21.0-51.0 % Monocytes (%) (Auto) 10.6 3.0-13.0 % Eosinophils (%) (Auto) 0.2 0.0-8.0 % Basophils (%) (Auto) 0.3 0.0-5.0 % Neutrophils # (Auto) 6.9 1.8-7.7 K/uL Lymphocytes # (Auto) 1.8 1.0-4.8 K/uL Monocytes # (Auto) 1.0 0.1-1.0 K/uL Eosinophils # (Auto) 0.02 0.00-0.70 K/uL Basophils # (Auto) 0.03 0.00-0.20 K/uL Absolute Immature Granulocyte (auto 0.04 0-1 K/uL Nucleated Red Blood Cells 0.0 0.0-0.19 % Sodium Level 138 136-145 mmol/L Potassium Level 3.4 L 3.5-5.1 mmol/L Chloride Level 106 101-111 mmol/L Carbon Dioxide Level 26 21-32 mmol/L Blood Urea Nitrogen 14 7-18 mg/dL Creatinine 0.8 0.5-1.0 mg/dL Glomerular Filtration Rate Calc 72 >90 mL/min Random Glucose 107 H 70-105 mg/dL Total Calcium 7.6 L 8.5-10.1 mg/dL Magnesium Level 1.70 L 1.80-2.40 mg/dL Total Bilirubin 0.3 0.2-1.0 mg/dL Aspartate Amino Transf (AST/SGOT) 21 10-37 U/L Alanine Aminotransferase (ALT/SGPT) 12 12-78 U/L Alkaline Phosphatase 52 50-136 U/L Total Protein 5.9 L 6.0-8.3 g/dL Albumin 2.6 L 3.5-5.0 g/dL White Cell Morphology Comment See comments Current Medications Medications (Trade) Dose Ordered Sig/Lidia Route PRN Reason Start Time Stop Time Status Last Admin Dose Admin Acetaminophen (TYLenol 325MG TAB) 650 mg Q4H PRN PO TEMPERATURE GREATER THAN 101.5 12/17/24 11:30 01/16/25 11:29 Alprazolam (XANax 1MG) 2 mg PM PO 12/17/24 21:00 01/16/25 20:59 12/18/24 21:05 2 MG Atorvastatin Calcium (LIPItor 20MG) 20 mg DAILY PO 12/18/24 09:00 12/19/24 10:50 DC 12/19/24 08:16 20 MG Atorvastatin Calcium (LIPItor 20MG) 20 mg HS PO 12/20/24 21:00 01/17/25 08:59 Benzocaine (Cepacol Sore Throat Lozenge) 1 each Q6H6 PRN MM SORE THROAT 12/18/24 21:30 01/17/25 21:29 Bisacodyl (DulcoLAX 5MG TAB) 10 mg DAILY PO 12/18/24 09:00 01/17/25 08:59 12/19/24 08:16 10 MG Cefazolin Sodium (ANCEF 1 gm vial) 1 gm Q8H IVPB 12/18/24 16:35 12/20/24 16:34 12/19/24 08:15 1 GM Cefazolin Sodium (Ancef) 1 gm Q8H IVPB 12/18/24 16:30 12/18/24 16:35 DC Docusate Sodium (COLace 100MG CAP) 200 mg DAILY PO 12/18/24 09:00 01/17/25 08:59 12/19/24 08:16 200 MG Famotidine (Pepcid 20mg Vial) 20 mg DAILY IV 12/17/24 21:00 01/16/25 20:59 12/19/24 08:15 20 MG Gabapentin (NEURontin 100 mg CAP) 100 mg BID PO 12/17/24 21:00 01/16/25 20:59 12/19/24 08:17 100 MG Heparin Sodium (Porcine) (HEParin 5,000 UNIT VIAL) 5,000 unit Q12H SQ 12/17/24 11:30 01/16/25 11:29 12/19/24 11:49 5,000 UNIT Home Med (Home Medication) (Lubiprostone (Amitiza... DAILY PO 12/18/24 09:00 01/17/25 08:59 Hydralazine HCl (APRESOLine 20MG INJ) 5 mg Q4H PRN IV ADMINISTER FOR SBP > 160 12/17/24 11:30 01/16/25 11:29 Ketorolac Tromethamine (toRADol) 15 mg Q4HPRN PRN IV SEVERE PAIN (7-10) 12/17/24 14:00 12/19/24 10:51 DC 12/19/24 01:46 15 MG Ketorolac Tromethamine (toRADol) 15 mg Q6H PRN IV SEVERE PAIN (7-10) 12/17/24 12:00 12/17/24 13:55 DC Ketorolac Tromethamine (toRADol) 15 mg TID PRN IV MODERATE PAIN (4-6) 12/18/24 11:00 12/20/24 11:00 Lactulose (Constulose 20gm/ 30ml Udcup) 20 gm BID PRN PO CONSTIPATION 12/17/24 13:00 01/16/25 12:59 Ondansetron HCl (zoFRAN 4MG INJ) 4 mg Q6H PRN IVP NAUSEA/VOMITING 12/17/24 11:30 01/16/25 11:29 Sertraline HCl (ZOloft 50 mg tab) 25 mg DAILY PO 12/18/24 09:00 01/17/25 08:59 12/19/24 08:16 25 MG Sodium Chloride 1,000 ml @ 75 mls/hr [id number] IV 12/17/24 11:30 01/16/25 11:29 12/18/24 13:49 75 MLS/HR Trazodone HCl (DesyREL/OlepTRO) 150 mg PM PO 12/17/24 21:00 01/16/25 20:59 12/18/24 21:05 150 MG DIAGNOSTICS / RADIOLOGY: [ ] ASSESSMENT: MECHANICAL FALL INTRACTABLE RIGHT HIP PAIN POA RIGHT FEMORAL NECK DISPLACED FRACTURE POA CHRONIC LOW BACK PAIN poa PLAN: [ ] ADMIT: SURGICAL FLOOR CONDITION: GUARDED STATUS: Full code IVF: [facility] orthopedic Procedure ORIF POD #1 will follow surgeon: post operative recommendations: Weight bearing as recommended by Orthopedic. LABS CBC, CMP, MAG+ and UA REPLACE ELECTROLYTES NEEDED PER PROTOCOL TO KEEP POTASSIUM ABOVE 4.0 MAGNESIUM 2.0. BOWEL REGIMENT: LACTULOSE 20 GM PO BID PRN CONSTIPATION PAIN MANAGEMENT: Toradol 30 mg IV as needed and [place]. SUPPORTIVE MEASURES: DVT PPX, GI PPX Case management: discharged planning. [facility] ALL QUESTIONS ANSWERED SUPERVISING MD: DR. Anthony C/D THIS DOCUMENT WAS GENERATED IN PART USING VOICE RECOGNITION SOFTWARE, OCCASIONAL WRONG WORD OR SOUND ALIKE SUBSTITUTIONS MAY HAVE OCCURRED DUE TO THE INHERENT LIMITATIONS OF VOICE RECOGNITION SOFTWARE. READ THE CHART CAREFULLY AND RECOGNIZE USING CONTEXT, WHERE THE SUBSTITUTIONS HAVE OCCURRED. ALTHOUGH EVERY EFFORT WAS MADE TO EDIT THE CONTENT, PILL COATER AND TYPING ERRORS MAY OCCUR ATTESTATION BY PHYSICIAN I have seen and examined the patient. I reviewed the documentation, medical decision making, and treatment plan as noted by the mid-level provider above. I agree with the findings and plan of care. Ernestina Anthony MD, ELIZABETH NP Dec 19, 2024 12:14
[2024-12-19] MEDS: ketOROlac 15MG/ML VIAL (15MG/ML) IV PRN (16:43)
--- NOTE | 2024-12-19 19:09 | PN ---
TIME: 2:40 p.m. SUBJECTIVE: The patient is resting in bed, watching TV. She walked with physical therapy today. She feels well. She has no complaints of pain. She is able to tolerate it. She is doing well. PHYSICAL EXAMINATION: GENERAL: She is awake, alert and oriented. VITAL SIGNS: She is afebrile. Vital signs are stable. EXTREMITIES: Her dressing clean, dry and intact. Her compartments are soft. Her skin is intact. Sensation intact. She is neurovascularly intact. She can flex and extend her toes and ankles without difficulty. IMPRESSION: Status post hemiarthroplasty. PLAN: She is going to be weightbearing as tolerated. DVT prophylaxis for 3 weeks. Pain control and weightbearing as tolerated. We will see her back in 2 weeks. TID: [id number] RECEIPT: [id number]
[2024-12-19] MEDS: acetaMINOPHEN 325 MG TAB PO PRN (19:40)
[2024-12-19] MEDS: LACTULOSE 20 GM/30 ML UDCUP PO PRN (21:07)
[2024-12-20] VITALS: BP 85/53; PULSE 76; RESP 16; TEMP 98
[2024-12-20 04:49] VITALS: BP 110/48; PULSE 72; RESP 18; TEMP 97.8
[2024-12-20 08:00] VITALS: BP 117/54; PULSE 75; RESP 18; TEMP 98.2; O2SAT 93
[2024-12-20 12:00] VITALS: BP 126/55; PULSE 83; RESP 16; TEMP 98.8
--- NOTE | 2024-12-20 14:35 | DS ---
Discharge Summary Hospital Course Summary: 84-year-old female that presents in ER with right hip pain secondary to a fall. Apparently patient reports walking up stairs and fell on her right side. Immediately she started with right hip pain and came to ED for further evaluation and treatment. The patient denies prior to fall being dizzy, blurry vision or shortness a breath. She does report when she fell she bumped her head therefore we will get imaging of head CT. ER workup was consistent with femoral neck fracture orthopedic was consulted per ER physician and will accept patient possible ORIF. Patient continued with hospitalization, evaluated by Orthopedic surgeon, recommended to proceed with ORIF. On 12/18/2024 patient underwent successful right hemiarthroplasty for right displaced femoral neck fracture. Patient tolerated procedure well, postoperatively transferred back to [facility] for continued observation and management. Over the following days, patient's steadily improving pain controlled, initiated on physical therapy. Follow up with orthopedic surgeon, recommendations to continue weight- bearing as tolerated, DVT prophylaxis for three weeks, pain control, and outpatient follow up within two weeks. Patient with continued need for further rehab, case management consulted for care home facility. Patient remained hemodynamically stable, free of any further disease exacerbations. Patient was accepted to care home facility, and at this time we will be discharged to next level of care. Patient instructed on medications to continue upon discharge, and outpatient follow up with primary care team, and orthopedic surgeon. Emergency Room Clinician(s): Orthopedic surgeon: Dr. Lanza Procedure(s): Right hemiarthroplasty Assessment/Plan: ASSESSMENT: MECHANICAL FALL INTRACTABLE RIGHT HIP PAIN POA RIGHT FEMORAL NECK DISPLACED FRACTURE POA CHRONIC LOW BACK PAIN poa PLAN: Patient to be discharged to care home facility at this time. Home Medications: Reported Medications Spironolactone (Spironolactone) 25 Mg Tablet, 1 TAB PO DAILY for 30 Days, #30 TAB 0 Refills 12/17/24 Cephalexin (Cephalexin) 250 Mg Tablet, 250 MG PO DAILY for UTI PREVENTION , TAB 12/17/24 Trazodone HCl (Trazodone HCl) 150 Mg Tablet, 150 MG PO PM, TAB 02/19/22 Alprazolam (Alprazolam) 2 Mg Tablet, 2 MG PO PM, TAB 02/19/22 Docusate Sodium (Stool Softener) 100 Mg Tablet, 200 MG PO DAILY, TAB 02/19/22 Bisacodyl (Bisacodyl) 5 Mg Tablet.dr, 10 MG PO DAILY, TAB 02/19/22 Furosemide (Furosemide) 80 Mg Tablet, 40 MG PO DAILY, TAB 02/19/22 Sertraline HCl (Sertraline HCl) 25 Mg Tablet, 25 MG PO DAILY, TAB 02/19/22 Rosuvastatin Calcium (Rosuvastatin Calcium) 5 Mg Tablet, 5 MG PO DAILY, TAB 02/19/22 Gabapentin (Gabapentin) 100 Mg Capsule, 100 MG PO BID, CAP 02/19/22 Lubiprostone (Amitiza) 8 Mcg Capsule, 8 MCG PO DAILY, CAP 02/19/22 Discontinued Reported Medications Potassium Chloride (Potassium Chloride) 20 Meq Tablet.er, 20 MEQ PO BID, TAB 02/19/22 Multivitamin/Iron/Folic Acid (Centrum Complete Multivit Tab) 1 Each Tablet, 1 EACH PO DAILY, TAB 02/19/22 Omeprazole (Omeprazole) 20 Mg Tablet.dr, 20 MG PO DAILY, TAB 02/19/22 Cholecalciferol (Vitamin D3) (Vitamin D3) 50 Mcg Capsule, 50 MCG PO BID, CAP 02/19/22 Acetaminophen (Tylenol) 325 Mg Tablet, 325 MG PO BID, TAB 02/19/22 Time spent arranging discharge: 31-60 minutes BERNIE LEE Dec 20, 2024 14:35
--- NOTE | 2024-12-20 15:17 | NUR ---
RECEIVED DISCHARGE ORDERS FOR PATIENT TO BE TRANSFERRED TO [facility]. CALLED TO GIVE REPORT ON THE PATIENT AND THE DESK EDITOR STATED THAT THE NURSE WAS BUSY AND NOT READY TO TAKE REPORT. SHE ASKED FOR MY CALL BACK NUMBER AND WOULD HAVE THE NURSE CALL ME BACK WHEN SHE WAS READY.
--- NOTE | 2024-12-20 15:27 | NUR ---
DISCHARGE DISCHARGE ORDERS FOR PATIENT TO BE DISCHARGED TO [facility] OBTAINED. DISCHARGE INSTRUCTIONS AND DOCUMENTATION GIVEN TO PATIENT AT BEDSIDE. VOICED UNDERSTANDING. IV DISCONTINUED, CATHETER INTACT, NO S/S OF INFECTION NOTED TO SITE. PATIENT TOLERATED WELL. BANDS REMOVED. PENDING FACILITY TRANSPORTATION.
--- NOTE | 2024-12-20 15:34 | NUR ---
RECIEVED CALL FROM [facility]. GAVE REPORT TO THU GILLIS STATED THAT THE DRIVERS TO TRANSPORT PATIENT ARE BUSY AT THE MOMENT AND WILL BE SENT WHEN THEY ARE AVAILABLE.
--- NOTE | 2024-12-20 16:30 | NUR ---
TRANSPORT HERE FROM [facility] TO [employer] PATIENT. PATIENT GIVEN AN ENEMA BEFORE LEAVING. IV TAKEN OUT AND EDUCATION GIVEN ON HOME MEDICATIONS TO CONTINUE AN WHICH MEDICATIONS TO DISCONTINUE.
[2024-12-20] MEDS ORDERED: atorVAStatin 20 MG TABLET PO SCH (21:00)
== END 2024-12-20 16:40 | DRG 522 ==
LOC: EDH 09:49 → EDHIP 11:06 → 4CH 12:00
PROVIDERS: ADMIT Internal Medicine; ATTEND Internal Medicine
PROC: 3E0T3BZ Introduction of Anesthetic Agent into Peripheral Nerves and Plexi, Percutaneous Approach (ICD-10-PCS; 2024-12-18)
PROC: 0SRR0JZ Replacement of Right Hip Joint, Femoral Surface with Synthetic Substitute, Open Approach (ICD-10-PCS; principal; 2024-12-18 07:49)
DX: S72.091A Other fracture of head and neck of right femur, initial encounter for closed fracture (principal); F41.9 Anxiety disorder, unspecified; F32.A Depression, unspecified; G89.29 Other chronic pain; M54.50 Low back pain, unspecified; W10.9XXA Fall (on) (from) unspecified stairs and steps, initial encounter; Y93.01 Activity, walking, marching and hiking; Y92.89 Other specified places as the place of occurrence of the external cause; Y99.8 Other external cause status; Z88.5 Allergy status to narcotic agent
CPT/HCPCS: 36415; 70450; 71045; 72170; 73502; 73503; 80053; 83735; 85025; 99285; C1776; G0378; J0690; J1100; J1171; J1644; J1885; J2003; J2405; J2704; J2710; J2795; J3490; J7030; A4649; A6223; A9272